=== PATIENT | female | born 1975 | race Caucasian/White ===

== ENCOUNTER 2022-04-08 13:36 | Emergency (ER) | payer OTHER ==
[2022-04-08] MEDS ORDERED: Lidocaine 2% 20 ml MDV ONE (13:43)
[2022-04-08] MEDS ORDERED: Boostrix 0.5 ML (Tdap) VIAL ONE (13:48)
[2022-04-08] MEDS ORDERED: Morphine 4 MG/ML VIAL ONE ×2 (13:48→14:43)
[2022-04-08] MEDS ORDERED: Sodium Chloride 0.9% 100 ML ONE (13:48)
[2022-04-08] MEDS ORDERED: CEFAZOLIN 1 GM VIAL ONE (13:48)
[2022-04-09 16:34] LABS: SARS-CoV-2 PCR by NAA Not Detected (NotDetected)
== END 2022-04-08 16:43 | disposition short-term general hospital (02) ==
LOC: BURERS 13:36
DX: S61.211A Laceration without foreign body of left index finger without damage to nail, initial encounter (principal); E03.9 Hypothyroidism, unspecified; W27.0XXA Contact with workbench tool, initial encounter; Z23 Encounter for immunization; Z20.822 Contact with and (suspected) exposure to COVID-19; Z79.899 Other long term (current) drug therapy
CPT/HCPCS: 64450; 90471; 90715; 96365; 96375; 96376; J0690; J2270; J3490; U0003; U0005